=== PATIENT | male | born 1985 | race Caucasian/White ===

== ENCOUNTER 2017-07-19 22:38 | Emergency (ER) | payer OTHER ==
[2017-07-19] MEDS ORDERED: KETOROLAC 15 MG/1 ML SDV IVP ONE (23:30)
[2017-07-19] MEDS ORDERED: NS 1,000 ML IV ONE (23:30)
--- NOTE | 2017-07-19 23:36 | EDPHY ---
H & P Stated Complaint: R FLANK PAIN Time Seen by Provider: 07/19/17 22:55 HPI/ROS: HPI The patient presents with intermittent right flank pain over the last 3 weeks which has been mild though mountain in severity. He was seen about 1 week ago at an urgent care and was noted to have hematuria, he was given a 2 week course of antibiotics. Over the last 4-5 days he has had more persistent right-sided flank pain and tonight at 7:30 p.m. Suddenly he had worsening of the pain. He says it feels like an achy sensation that comes in waves. He was doubled over because the pain was so severe. He has not had any nausea or vomiting, fevers or chills. He denies any gross hematuria.. Since he has been in the emergency department, his pain has improved after urinating. REVIEW OF SYSTEMS Constitutional: No fever, no chills. Eyes: No discharge. ENT: No sore throat. Cardiovascular: No chest pain, no palpitations. Respiratory: No cough, no shortness of breath. Gastrointestinal: No abdominal pain, no vomiting. Genitourinary: History of hematuria. Musculoskeletal: No back pain. Skin: No rashes. Neurological: No headache. PMHx: Healthy Soc Hx: Lives with and daughter PHYSICAL General Appearance: Alert, no distress Eyes: Pupils equal and round no pallor or injection ENT, Mouth: Mucous membranes moist Respiratory: There are no retractions, lungs are clear to auscultation Cardiovascular: Regular rate and rhythm Gastrointestinal: Abdomen is soft and non-tender, no masses, bowel sounds normal Neurological: A&O, moves all extremities Skin: Warm and dry, no rashes Musculoskeletal: Neck is supple non tender Extremities: symmetrical, full range of motion Psychiatric: Patient is oriented X 3, there is no agitation Source: Patient Exam Limitations: No limitations - Personal History Current Tetanus Diphtheria and Acellular Pertussis (TDAP): Yes - Medical/Surgical History Hx Asthma: No Hx Chronic Respiratory Disease: No Hx Diabetes: No Hx Cardiac Disease: No Hx Renal Disease: No Hx Cirrhosis: No Hx Alcoholism: No Hx HIV/AIDS: No Hx Splenectomy or Spleen Trauma: No Other PMH: TESTICAL SX - Social History Smoking Status: Never smoked Constitutional: Initial Vital Signs Temperature (C) 37.1 C 07/19/17 22:43 Heart Rate 79 07/19/17 22:43 Respiratory Rate 16 07/19/17 22:43 Blood Pressure 164/101 H 07/19/17 22:43 O2 Sat (%) 96 07/19/17 22:43 O2 Delivery Mode Room Air Allergies/Adverse Reactions: acetaminophen [From Vicodin] Allergy (Verified 07/19/17 22:43) hydrocodone [From Vicodin] Allergy (Verified 07/19/17 22:43) Home Medications: Medication Instructions Recorded Tamsulosin HCl [Flomax 0.4 MG (*)] 0.4 mg PO DAILY #10 cap 07/20/17 Medical Decision Making - Diagnostics Imaging Results: Imaging Impressions Abdomen X-Ray 07/19/17 23:30 Impression: 1. No significant abnormality seen within the abdomen. If symptoms persist, consider noncontrast CT abdomen and pelvis study to evaluate for possible obstructive urinary tract calculus. Procedures: Bedside limited abdominal Ultrasound- performed and interpreted by me. Indication: Right-sided flank pain Findings: Mild right-sided hydronephrosis, no fluid in Morison's pouch, in no visualized kidney stone within the kidney Impression: Mild right-sided hydronephrosis Differential Diagnosis: This is a 31-year-old male with history of intermittent right flank pain over the last several weeks associated with hematuria. He now has worsening pain since 10/10 tonight which is severe. He is feeling much better after urinating here in the emergency department. Differential diagnosis includes ureterolithiasis, pyelonephritis, less likely AAA. Bedside ultrasound demonstrates mild right-sided hydronephrosis. KUB did not locate any stone. The patient felt well enough to go home and was having minimal pain. I will send him home with Flomax and referral to Urology. I have encouraged him to use ibuprofen for pain. - Data Points Laboratory Results: Laboratory Results 07/19/17 23:00 07/19/17 23:00 07/19/17 07/19/17 07/19/17 23:00 23:00 23:00 WBC 6.49 10^3/uL 10^3/uL (3.80-9.50) RBC 5.22 10^6/uL 10^6/uL (4.40-6.38) Hgb 14.9 g/dL g/dL (13.7-17.5) Hct 44.1 % % (40.0-51.0) MCV 84.5 fL fL (81.5-99.8) MCH 28.5 pg pg (27.9-34.1) MCHC 33.8 g/dL g/dL (32.4-36.7) RDW 13.8 % % (11.5-15.2) Plt Count 236 10^3/uL 10^3/uL (150-400) MPV 9.1 fL fL (8.7-11.7) Neut % (Auto) 56.4 % % (39.3-74.2) Lymph % (Auto) 33.4 % % (15.0-45.0) [place] % (Auto) 8.2 % % (4.5-13.0) Eos % (Auto) 1.2 % % (0.6-7.6) Baso % (Auto) 0.6 % % (0.3-1.7) Nucleat RBC Rel Count 0.0 % % (0.0-0.2) Absolute Neuts (auto) 3.66 10^3/uL 10^3/uL (1.70-6.50) Absolute Lymphs (auto) 2.17 10^3/uL 10^3/uL (1.00-3.00) Absolute Monos (auto) 0.53 10^3/uL 10^3/uL (0.30-0.80) Absolute Eos (auto) 0.08 10^3/uL 10^3/uL (0.03-0.40) Absolute Basos (auto) 0.04 10^3/uL 10^3/uL (0.02-0.10) Absolute Nucleated RBC 0.00 10^3/uL 10^3/uL (0-0.01) Immature Gran % 0.2 % % (0.0-1.1) Immature Gran # 0.01 10^3/uL 10^3/uL (0.00-0.10) Sodium 143 mEq/L mEq/L (135-145) Potassium 3.9 mEq/L mEq/L (3.5-5.2) Chloride 106 mEq/L mEq/L (97-110) Carbon Dioxide 24 mEq/l mEq/l (22-31) Anion Gap 13 mEq/L mEq/L (8-16) BUN 14 mg/dL mg/dL (7-23) Creatinine 0.9 mg/dL mg/dL (0.7-1.3) Estimated GFR > 60 Glucose 89 mg/dL mg/dL (70-100) Calcium 9.6 mg/dL mg/dL (8.5-10.4) Total Bilirubin 0.4 mg/dL mg/dL (0.1-1.4) AST 33 IU/L IU/L (17-59) ALT 51 IU/L IU/L (21-72) Alkaline Phosphatase 56 IU/L IU/L (38-126) Total Protein 7.4 g/dL g/dL (6.3-8.2) Albumin 4.6 g/dL g/dL (3.5-5.0) Urine Color YELLOW Urine Appearance CLEAR Urine pH 5.0 (5.0-7.5) Ur Specific [place] 1.026 (1.002-1.030) Urine Protein NEGATIVE (NEGATIVE) Urine Ketones NEGATIVE (NEGATIVE) Urine Blood 2+ H (NEGATIVE) Urine Nitrate NEGATIVE (NEGATIVE) Urine Bilirubin NEGATIVE (NEGATIVE) Urine Urobilinogen NEGATIVE EU EU (0.2-1.0) Ur Leukocyte Esterase NEGATIVE (NEGATIVE) Urine RBC 10-15 /hpf H /hpf (0-3) Urine WBC 3-5 /hpf H /hpf (0-3) Ur Epithelial Cells Not Reported Calcium Oxalate Crystal PRESENT /hpf /hpf (NONE-1+) Urine Mucus 2+ /lpf H /lpf (NONE-1+) Urine Glucose NEGATIVE (NEGATIVE) Medications Given: Discontinued Medications Sodium Chloride (Ns) 1,000 mls @ 0 mls/hr IV EDNOW ONE; Wide Open PRN Reason: Protocol Stop: 07/19/17 23:31 Last Admin: 07/19/17 23:38 Dose: 1,000 mls Ketorolac Tromethamine (Toradol) 15 mg IVP EDNOW ONE Stop: 07/19/17 23:31 Last Admin: 07/19/17 23:37 Dose: 15 mg Departure - Departure Disposition: Home, Routine, Self-Care Clinical Impression: Ureterolithiasis Condition: Good Instructions: Kidney Stones (ED), How to Strain Your Urine (ED) Additional Instructions: Please return to the emergency department if your worse in any way. You should make sure to drink plenty of fluids. I recommend you take ibuprofen 400 mg every 6 hr as needed for pain. You should make sure to strain her urine. If you have ongoing pain lasting for more than a week, I recommend you make an appointment with the urologist for further evaluation of your kidney stone. Referrals: Bang Crawford MD [Medical Doctor] - As per Instructions Prescriptions: Tamsulosin HCl [Flomax 0.4 MG (*)] 0.4 mg PO DAILY #10 cap
[2017-07-19 23:39] LABS: PLATELET COUNT 236 10^3/uL (150-400)
[2017-07-20 00:29] VITALS: BP 139/78
== END 2017-07-20 00:28 | disposition home or self-care (01) ==
DX: N20.1 Calculus of ureter (principal); E86.9 Volume depletion, unspecified
CPT/HCPCS: 96374; J1885

== ENCOUNTER 2017-07-20 04:42 | Emergency (ER) | payer OTHER ==
[2017-07-20] MEDS ORDERED: KETOROLAC 15 MG/1 ML SDV IVP ONE (05:02)
[2017-07-20] MEDS ORDERED: HYDROmorphONE/DILAUDID 2 MG/ML INJ IVP ONE (05:02)
[2017-07-20] MEDS ORDERED: NS 1,000 ML IV ONE (05:02)
[2017-07-20] MEDS ORDERED: LIDOCAINE 1% 150 MG in NS 100 ML IV ONE (05:03)
--- NOTE | 2017-07-20 06:56 | EDPHY ---
H & P Stated Complaint: WORSENING PAIN SINCE 16 D/C R FLANK, KIDNEY STONE Time Seen by Provider: 07/20/17 05:02 HPI/ROS: HPI The patient presents with worsening right-sided flank pain since he was here earlier in the day. I diagnosed him with symptomatic ureterolithiasis based on bedside ultrasound and hematuria. KUB did not reveal kidney stone. In the ED earlier he received IV fluids and Toradol and had very minimal pain. I had suspected that he had passed his stone. However, abruptly, several hours ago his pain returned and was severe, 10/10 dull. REVIEW OF SYSTEMS Constitutional: No fever, no chills. Eyes: No discharge. ENT: No sore throat. Cardiovascular: No chest pain, no palpitations. Respiratory: No cough, no shortness of breath. Gastrointestinal: No abdominal pain, no vomiting. Genitourinary: Positive for hematuria. Musculoskeletal: Right flank pain Skin: No rashes. Neurological: No headache. PMHx: Recent diagnosis of ureterolithiasis Soc Hx: Housed with his and daughter PHYSICAL General Appearance: Alert, no distress Eyes: Pupils equal and round no pallor or injection ENT, Mouth: Mucous membranes moist Respiratory: There are no retractions, lungs are clear to auscultation Cardiovascular: Regular rate and rhythm Gastrointestinal: Abdomen is soft and non-tender, no masses, bowel sounds normal , right flank tenderness Neurological: A&O, moves all extremities Skin: Warm and dry, no rashes Musculoskeletal: Neck is supple non tender Extremities: symmetrical, full range of motion Psychiatric: Patient is oriented X 3, there is no agitation Source: Patient Exam Limitations: No limitations - Personal History Current Tetanus Diphtheria and Acellular Pertussis (TDAP): Unsure - Medical/Surgical History Hx Asthma: No Hx Chronic Respiratory Disease: No Hx Diabetes: No Hx Cardiac Disease: No Hx Renal Disease: No Hx Cirrhosis: No Hx Alcoholism: No Hx HIV/AIDS: No Hx Splenectomy or Spleen Trauma: No Other PMH: TESTICAL SX - Social History Smoking Status: Never smoked Constitutional: Initial Vital Signs Temperature (C) 36.4 C 07/20/17 04:50 Heart Rate 72 07/20/17 04:50 Respiratory Rate 16 07/20/17 04:50 Blood Pressure 152/91 H 07/20/17 04:50 O2 Sat (%) 95 07/20/17 04:50 O2 Delivery Mode Room Air Allergies/Adverse Reactions: acetaminophen [From Vicodin] Allergy (Verified 07/19/17 22:43) hydrocodone [From Vicodin] Allergy (Verified 07/19/17 22:43) Home Medications: Medication Instructions Recorded Ondansetron Odt [Zofran Odt 4 mg 4 mg PO Q4 PRN #10 tab 07/20/17 (*)] Tamsulosin HCl [Flomax 0.4 MG (*)] 0.4 mg PO DAILY #10 cap 07/20/17 oxyCODONE HCL/ACETAMINOPHEN 1 each PO Q6H PRN #15 tablet 07/20/17 [Percocet 5-325 mg Tablet] Medical Decision Making - Diagnostics Imaging Results: Imaging Impressions Abdomen/Pelvis CT 07/20/17 05:58 Impression: 1. Mild right hydronephrosis secondary to 6 mm calculus proximal ureter. 2. Left nephrolithiasis. Findings discussed with Emergency Department physician, Nikki Vitale MD on 07/20/2017 at 7:12 a.m. Attention: This CT examination is specifically designed to evaluate patients who are clinically suspected of having acute obstructive uropathy. This examination does not use radiographic contrast, and as such, provides only a limited evaluation of the abdomen, pelvis and retroperitoneum. If there is further clinical suspicion for pathological conditions other than obstructive uropathy, a complete CT evaluation of the abdomen and pelvis utilizing intravenous, oral, and rectal contrast should be considered. C Imaging: Discussed imaging studies w/ call centre supervisor Radiologist Differential Diagnosis: This is a 31-year-old male with symptomatic ureterolithiasis with symptoms for the last several weeks which were very mild, becoming more serious today. Second ER visit in 24 hr for this. His pain was minimal on initial visit and improved completely. However now his pain is quite severe. He has had labs within a few hours, thus I will not repeat. I will plan for CT scan as abdomen pelvis to elucidate size of stone. He has received pain medication. Stone measures 6 mm at maximum diameter and it is in the proximal ureter, there is resulting hydronephrosis. I have discussed these test results with the patient. His pain is now much better. He feels well enough going home. I will give him a dose of Flomax before he goes. He will be given Percocet as well. He was given information for Urology follow-up. - Data Points Medications Given: Discontinued Medications Hydromorphone HCl (Dilaudid) 0.5 mg IVP EDNOW ONE Stop: 07/20/17 05:03 Last Admin: 07/20/17 06:53 Dose: Not Given Sodium Chloride (Ns) 1,000 mls @ 0 mls/hr IV EDNOW ONE; Wide Open PRN Reason: Protocol Stop: 07/20/17 05:03 Last Admin: 07/20/17 05:15 Dose: 1,000 mls Lidocaine HCl 150 mg/ Sodium (Chloride) 115 mls @ 600 mls/hr IV EDNOW ONE Stop: 07/20/17 05:14 Last Admin: 07/20/17 05:33 Dose: 115 mls Ketorolac Tromethamine (Toradol) 15 mg IVP EDNOW ONE Stop: 07/20/17 05:03 Last Admin: 07/20/17 05:14 Dose: 15 mg Departure - Departure Disposition: Home, Routine, Self-Care Clinical Impression: Ureterolithiasis Condition: Good Instructions: Kidney Stones (ED), How to Strain Your Urine (ED) Additional Instructions: 1. Take Ibuprofen or Motrin 600 mg by mouth three times a day. 2. Percocet as needed for severe pain 3. Flomax as directed 4. Zofran as needed for nausea 5. Strain urine as directed 6. Return to the Emergency Department for intractable pain, fever or vomiting. 7. Followup with the urologist you have been referred to for unimproved symptoms. Referrals: Bang Crawford MD [Medical Doctor] - As per Instructions Prescriptions: Ondansetron Odt [Zofran Odt 4 mg (*)] 4 mg PO Q4 PRN #10 tab PRN Reason: Nausea/Vomiting, Can'T Take Po oxyCODONE HCL/ACETAMINOPHEN [Percocet 5-325 mg Tablet] 1 each PO Q6H PRN #15 tablet PRN Reason: Pain, Breakthrough
[2017-07-20] MEDS ORDERED: TAMSULOSIN HCL 0.4 MG CAP PO ONE (07:19)
[2017-07-20 08:26] VITALS: BP 154/94
== END 2017-07-20 07:50 | disposition home or self-care (01) ==
DX: N20.1 Calculus of ureter (principal); E86.9 Volume depletion, unspecified
CPT/HCPCS: 96374; J1170; J1885

== ENCOUNTER → 2017-08-17 | Outpatient (CLI) | payer OTHER | LOC: FIMAGING 16:45 | PROVIDERS: ATTEND Specialist | DX: R10.31 Right lower quadrant pain (principal); N28.1 Cyst of kidney, acquired ==